=== PATIENT | male | born 1985 | race Caucasian/White ===

== ENCOUNTER 2017-07-31 19:36 | Emergency (ER) | payer MEDICAID ==
[~2017-07-31] VITALS: Ht 180.3 cm; Wt 74.8 kg
[2017-07-31 19:48] VITALS: BP 133/100
--- NOTE | 2017-07-31 21:26 | Emergency Room Report ---
History of Present Illness General Chief Complaint: Overdose Source: Patient Present Illness HPI 31-year-old male, history of heroin abuse, presenting with heroin overdose. Patient just got out of rehabilitation yesterday. He was in the car with his girlfriend, girlfriend left for 10 minutes, found the patient unresponsive in his car. EMS arrived, he was given 2 mg heroin and he became responsive immediately. Currently patient is in no 4, now complaining of any pain. Admits to taking a small amount of heroin. Denies any other drug use. Denies any SI or HI Allergies: Coded Allergies: SULFA (SULFONAMIDE ANTIBIOTICS) (Verified Allergy, Unknown, 07/31/17) Patient History Past Medical History: see triage record Past Surgical History: none Pertinent Family History: none Reviewed Nursing Documentation: PMH: Agreed, PSxH: Agreed Nursing Documentation-PMH Hx Cardiac Problems: Yes - ARTIFICIAL HEART VALVE Review of Systems All Other Systems: negative except mentioned in HPI Physical Exam Vital Signs Date Time Temp Pulse Resp B/P (MAP) Pulse Ox O2 Delivery O2 Flow Rate FiO2 07/31/17 19:32 98.0 112 16 133/100 100 Room Air 98.1 Sp02 EP Interpretation: reviewed, normal General Appearance: normal inspection, well appearing, no apparent distress, alert, GCS 15, non-toxic Head: normocephalic, atraumatic Eyes: bilateral eye normal inspection, bilateral eye PERRL, bilateral eye EOMI ENT: normal ENT inspection, normal pharynx, normal voice, moist mucus membranes Neck: normal inspection, full range of motion, supple Respiratory: normal inspection, lungs clear, normal breath sounds, no respiratory distress, no retraction, no wheezing, speaking full sentences, chest symmetrical Cardiovascular #1: normal inspection, regular rate, rhythm, normal capillary refill Cardiovascular #2: 2+ radial (R), 2+ radial (L) Gastrointestinal: normal inspection, non tender, soft, non-distended, no guarding Musculoskeletal: normal inspection, back normal, normal range of motion, non- tender Neurologic: normal inspection, alert, oriented x3, responsive, referral clerk III-XII nml as tested, motor strength/tone normal, sensory intact, normal gait, speech normal Psychiatric: normal inspection, judgement/insight normal, memory normal, no suicidal/homicidal ideation, no delusions Skin: normal inspection, normal color, no rash, warm/dry, well hydrated, normal turgor Medical Decision Making Diagnostic Impression: Primary Impression: Drug overdose ER Course 31-year-old male with heroin overdose DDX: Heroin overdose Plan: Obtain labs, ua, ucx, CXR, EKG Observed patient ER course: Patient has remained stable during ED stay. He has remained awake and alert, ambulatory, patient removed his IV line that was placed by EMS I wanted to observe the patient, draw labs, however patient refusing states that he feels fine. Patient was observed in the emergency room to be ambulatory , not hypoxic, completely conversive. He left AGAINST MEDICAL ADVICE Disposition: Patient left AGAINST MEDICAL ADVICE He was clinically sober, free from any distracting injury, I told him of significant morbidity and mortality from heroin overdose, and he understands. But still wants to leave states that he feels fine Please note that this Emergency Department Report was dictated using [employer] technology software, occasionally this can lead to erroneous entry secondary to interpretation by the dictation equipment Last Vital Signs Date Time Temp Pulse Resp B/P (MAP) Pulse Ox O2 Delivery O2 Flow Rate FiO2 07/31/17 19:48 98.0 16 133/100 100 Room Air 98.1 07/31/17 19:42 112 Disposition: AGAINST MEDICAL ADVICE Condition: Improved Patient Instructions: Drug Overdose Regan Walters M.D. Jul 31, 2017 21:26
== END 2017-07-31 19:48 | disposition left against medical advice (07) ==
LOC: EDBD 19:36 → EMR 19:45
DX: T40.5X1A Poisoning by cocaine, accidental (unintentional), initial encounter (principal); Z88.2 Allergy status to sulfonamides
CPT/HCPCS: 99283